=== PATIENT | male | born 1950 | race Caucasian/White ===

== ENCOUNTER 2018-06-29 04:19 | Emergency (ER) | payer OTHER ==
[2018-06-29] MEDS ORDERED: OXYMETAZOLINE 0.05% NASAL SOLUTION 15 ML BOTTLE NS ONE (04:34)
--- NOTE | 2018-06-29 04:35 | PDOC ---
History of Present Illness - General Stated Complaint: NOSEBLEED Time Seen by Provider: 06/29/18 04:22 - History of Present Illness Initial Comments: 06/29/18 04:29 67 yo M with h/o HTN, CHANEL, ventral hernia repair, A-fib ( on Xarelto) who p/w epistaxis. Patient reports acute onset of unprovoked right nare bleeding at 2: 30 AM, while sleeping with CPAP machine on. Also endorses blood down posterior throat. Denies h/o nose trauma, cocaine use, easy bruising, bleeding from orfices or gums. Bleeding unresolved with BL nasal bridge pressure. Reports multiple blood soaked "paper towels." Also reports similar presentation 2 weeks ago, with bleeding from R nare, resolved with nasal pressure after 2 hours. Patient denies JASON, vision change, hoarsness, N/V, F/C, CP, SOB, cough, palpitations, wheezing, urinary complaints, hematuria, abdominal pain, diarrhea , BPR, constipation, lightheadedness, weakness, sensory changes. PMHx: as noted above ROS: as noted SHx: Denies Allergies: NKDA Past History - Past Medical History Allergies/Adverse Reactions: Allergies Allergy/AdvReac Type Severity Reaction Status Date / Time No Known Drug Allergies Allergy Verified 06/29/18 04:40 Home Medications: Ambulatory Orders Acetaminophen/Caffeine/Butalb [Fioricet -] 1 tab PO Q4H PRN 04/13/15 Esomeprazole Mag Trihydrate [Nexium] 40 mg PO DAILY 04/13/15 Etodolac 500 mg PO DAILY 04/13/15 Fenofibrate Nanocrystallized [Tricor] 145 mg PO DAILY 04/13/15 Furosemide [Lasix -] 40 mg PO BID PRN 04/13/15 Metolazone [Zaroxolyn] 5 mg PO BID PRN 04/13/15 Metoprolol Succinate [Toprol Xl -] 50 mg PO HS 04/13/15 Metoprolol Succinate [Toprol Xl -] 100 mg PO DAILY 04/13/15 Warfarin Na [Coumadin] 5 mg PO DAILY@1800 04/13/15 Asthma: (SLEEP APNES C-PAP) HTN: Yes - Surgical History Orthopedic Surgery: Yes (FLACA KNEE TR RIGHT HIP REPLACEMENT) - Suicide/Smoking/Psychosocial Hx Smoking History: Never smoked Have you smoked in the past 12 months: No Hx Alcohol Use: No Drug/Substance Use Hx: No Substance Use Type: None Review of Systems - Review of Systems Comments:: 06/29/18 04:53 GENERAL/CONSTITUTIONAL: No fever or chills. No weakness. HEAD, EYES, EARS, NOSE AND THROAT: + Nose bleed. No change in vision. No ear pain or discharge. No sore throat. CARDIOVASCULAR: No chest pain or shortness of breath RESPIRATORY: No cough, wheezing, or hemoptysis. GASTROINTESTINAL: No nausea, vomiting, diarrhea or constipation. GENITOURINARY: No dysuria, frequency, or change in urination. MUSCULOSKELETAL: No joint or muscle swelling or pain. No neck or back pain. SKIN: No rash NEUROLOGIC: No headache, vertigo, loss of consciousness, or change in strength/ sensation. ENDOCRINE: No increased thirst. No abnormal weight change HEMATOLOGIC/LYMPHATIC: No anemia, easy bleeding, or history of blood clots. ALLERGIC/IMMUNOLOGIC: No hives or skin allergy. *Physical Exam - Physical Exam Comments: 06/29/18 04:52 GENERAL: Awake, alert, and fully oriented, in no acute distress HEAD: No signs of trauma, normocephalic, atraumatic EYES: PERRLA, EOMI, sclera anicteric, conjunctiva clear ENT: + Dried dark blood in R nare, with dried blood in posterior oropharynx. Auricles normal inspection, hearing grossly normal, nares patent with absent septal perforation.oropharynx clear without exudates. Moist mucosa NECK: Normal ROM, supple, no lymphadenopathy, JVD, or masses LUNGS: No distress, speaks full sentences, clear to auscultation bilaterally HEART: Regular rate and rhythm, normal S1 and S2, no murmurs, rubs or gallops, peripheral pulses normal and equal bilaterally. EXTREMITIES : Normal inspection, Normal range of motion, no edema. No clubbing or cyanosis. SKIN: Warm, Dry, normal turgor, no rashes or lesions noted Medical Decision Making - Medical Decision Making 06/29/18 04:49 67 yo M with h/o HTN, CHANEL, ventral hernia repair, A-fib ( on Xarelto) who p/w epistaxis from R nare beginning at 0230 AM (06/29/18). VSS, AF. Dried dark blood in R nare, with dried blood in posterior oropharynx. Bleeding resolved. Likely anterior vs. posterior epistaxis. Low suspicion hemophilia, coagulopathy , AVM, trauma, or neoplasia. Ed Course: Oxymetazoline 0.05% nasal spray Bleeding resolved 06/29/18 04:57 Patient stable for d/c with return precautions and advised to f/u with ENT. *DC/Admit/Observation/Transfer Diagnosis at time of Disposition: Epistaxis - Discharge Dispostion Condition at time of disposition: Stable Decision to Admit order: No - Referrals Referrals: Juancho Cheema MD [Staff Physician] - - Patient Instructions Printed Discharge Instructions: DI for Nosebleed Additional Instructions: Please return to the emergency department with any new or worsening symptoms or concerns. Please follow up with your primary care physician within 72 hours. Please follow up with ear,nose,throat doctor within one week. - Post Discharge Activity - Attestations Physician Attestion: 06/29/18 04:56 I attest to the information provided in this note.
[2018-06-29 04:40] VITALS: BP 143/80; PULSE 89; TEMP 98.4; BMI 44.9
--- NOTE | 2018-06-29 04:51 | PDOC ---
Attending Attestation - Resident Resident Name: Chirag White - ED Attending Attestation I have performed the following: I have examined & evaluated the patient, The case was reviewed & discussed with the resident, I agree w/resident's findings & plan - HPI HPI: 06/29/18 04:46 67y/o M HTN, afib on xarelto, CHANEL on nighttime cpap biba with nosebleed. awoke from sleep, upon standing to go to bathroom noted bleeding from R naris, applied pressure but continued bleeding intermittently for 2h so called EMS. bleeding stopped en route. no respiratory distress/light-headedness/cp. no recent congestion/URI. had similar bleed from R side about 1 month ago but self-resolved after 30 minutes. - Physicial Exam PE: 06/29/18 04:51 VSS no active bleeding b/l nares clean base, no clots or active bleeding, op clear lungs clear, airway patent - Medical Decision Making 06/29/18 04:52 67-year-old male on xarelto with epistaxis, resolved. hd stable, no airway/ respiratory issues. afrin spray observe and dispo with instructions and return precautions
== END 2018-06-29 05:50 | disposition home or self-care (01) ==
LOC: JER 04:19
PROC: 0W3Q7ZZ Control Bleeding in Respiratory Tract, Via Natural or Artificial Opening (ICD-10-PCS; principal; 2018-06-29)
DX: R04.0 Epistaxis (principal); I48.91 Unspecified atrial fibrillation; Z79.01 Long term (current) use of anticoagulants; I10 Essential (primary) hypertension; G47.33 Obstructive sleep apnea (adult) (pediatric)
CPT/HCPCS: 30901; 99282-25

== ENCOUNTER 2018-07-24 05:19 | Observation (INO) | payer OTHER ==
[2018-07-24] MEDS ORDERED: FUROSEMIDE 40 MG/4 ML INJECTABLE VIAL IVPUSH ONE (05:53)
--- NOTE | 2018-07-24 05:57 | PDOC ---
History of Present Illness - General Chief Complaint: Shortness of Breath Stated Complaint: SOB Time Seen by Provider: 07/24/18 05:47 History Source: Patient Exam Limitations: No Limitations - History of Present Illness Initial Comments: 67 yo M history CHF, CAD, HTN, afib, L foot drop presents with SOB. He states that he has felt like he has fluid in his lungs for the past 2 days. He has been taking medication at prescribed, has not missed anything. He states that he has not had fever, cough. +GONZÁLES, orthopnea. Past History - Past Medical History Allergies/Adverse Reactions: Allergies Allergy/AdvReac Type Severity Reaction Status Date / Time No Known Drug Allergies Allergy Verified 07/24/18 05:38 Home Medications: Ambulatory Orders Acetaminophen/Caffeine/Butalb [Fioricet -] 1 tab PO Q4H PRN 04/13/15 Esomeprazole Mag Trihydrate [Nexium] 40 mg PO DAILY 04/13/15 Furosemide [Lasix -] 40 mg PO BID PRN 04/13/15 Metolazone [Zaroxolyn] 5 mg PO BID PRN 04/13/15 Metoprolol Succinate [Toprol XL -] 50 mg PO HS 04/13/15 Metoprolol Succinate [Toprol XL -] 100 mg PO DAILY 04/13/15 Potassium Chloride [Klor-Con 8] 8 meq PO DAILY 06/29/18 Ergocalciferol (Vitamin D2) [Vitamin D2] 50,000 unit PO WEEKLY 07/24/18 Apixaban [Eliquis -] 5 mg PO BID tablet 07/26/18 Quinapril HCl [Accupril -] 20 mg PO DAILY #30 tablet 07/26/18 Cardiac Disorders: Yes (afib) COPD: No CHF: Yes HTN: Yes Other medical history: Uses CPAP at night - Surgical History Orthopedic Surgery: Yes (FLACA KNEE TR RIGHT HIP REPLACEMENT) - Suicide/Smoking/Psychosocial Hx Smoking History: Never smoked Have you smoked in the past 12 months: No Information on smoking cessation initiated: No Hx Alcohol Use: No Drug/Substance Use Hx: No Substance Use Type: None Review of Systems - Review of Systems Able to Perform ROS?: Yes Comments:: GENERAL/CONSTITUTIONAL: No fever or chills. No weakness. HEAD, EYES, EARS, NOSE AND THROAT: No change in vision. No ear pain or discharge. No sore throat. CARDIOVASCULAR: No chest pain. +Shortness of breath. RESPIRATORY: No cough, wheezing, or hemoptysis. GASTROINTESTINAL: No nausea, vomiting, diarrhea or constipation. GENITOURINARY: No dysuria, frequency, or change in urination. MUSCULOSKELETAL: No joint pain. No neck or back pain. +BLE swelling. SKIN: No rash NEUROLOGIC: No headache, vertigo, loss of consciousness, or change in strength/ sensation. ENDOCRINE: No increased thirst. No abnormal weight change. HEMATOLOGIC/LYMPHATIC: No anemia, easy bleeding, or history of blood clots. ALLERGIC/IMMUNOLOGIC: No hives or skin allergy. *Physical Exam - Vital Signs Last Vital Signs Temp Pulse Resp BP Pulse Ox 99.3 F 90 19 146/91 98 07/24/18 05:20 07/24/18 05:20 07/24/18 05:20 07/24/18 05:20 07/24/18 05:20 - Physical Exam Comments: GENERAL: Awake, alert, and fully oriented, in no acute distress. Morbidly obese. HEAD: No signs of trauma EYES: PERRLA, EOMI, sclera anicteric, conjunctiva clear ENT: Auricles normal inspection, hearing grossly normal, nares patent, oropharynx clear without exudates. Moist mucosa NECK: Normal ROM, supple, no lymphadenopathy, JVD, or masses LUNGS: Good air entry B/L, +crackles at bases B/L. HEART: Regular rate and rhythm, normal S1 and S2, no murmurs, rubs or gallops ABDOMEN: Soft, nontender, normoactive bowel sounds. No guarding, no rebound. No masses EXTREMITIES: Normal range of motion. 3+ pitting edema BLE (under compression stockings). No clubbing or cyanosis. No cords, erythema, or tenderness NEUROLOGICAL: Cranial nerves II through XII grossly intact. Normal speech. +L foot drop. Motor and sensation otherwise intact. SKIN: Warm, Dry, normal turgor, no rashes or lesions noted. ED Treatment Course - LABORATORY CBC & Chemistry Diagram: 07/25/18 06:25 07/26/18 06:24 - RADIOLOGY Radiology Studies Ordered: Category Date Time Status CHEST X-RAY PORTABLE* [RAD] Stat Radiology 07/24/18 05:53 Ordered Medical Decision Making - Medical Decision Making 07/24/18 06:13 Pt was not aware of history of afib on initial history, however, prior EKGs from 2015 show afib. He presents with worsening SOB, found to have crackles at bases B/L. Labs pending, CXR pending. Given lasix in ED, will plan for admission. 07/24/18 07:[address] Lei at shift change. Awaiting labs and CXR, likely admission. *DC/Admit/Observation/Transfer Diagnosis at time of Disposition: Acute on chronic diastolic (congestive) heart failure - Discharge Dispostion Disposition: HOME Condition at time of disposition: Fair - Prescriptions - Referrals - Patient Instructions - Post Discharge Activity
[2018-07-24 06:01] LABS: BASO % 0.7 % (0-2.0); EOS % 1.3 % (0-4.5); HEMATOCRIT 27.9 % (35.4-49); HEMOGLOBIN 8.7 GM/dL (11.7-16.9); LYMPH % 7.6 % (8-40); MCH 24.2 pg (25.7-33.7); MCHC 31.2 g/dl (32.0-35.9); MEAN CELL VOLUME 77.6 fl (80-96); MEAN PLT VOLUME 7.5 fl (7.5-11.1); MONO % 7.8 % (3.8-10.2); NEUT % 82.6 % (42.8-82.8); PLATELET COUNT 180 K/MM3 (134-434)
[2018-07-24] MEDS ORDERED: FUROSEMIDE 40 MG/4 ML INJECTABLE VIAL ONE (06:16)
[2018-07-24 06:17] LABS: INR 1.28 (0.83-1.09); PROTHROMBIN TIME (PATIENT) 15.1 SEC (9.7-13.0)
[2018-07-24 06:34] LABS: ALBUMIN 3.4 g/dl (3.4-5.0); ALK PHOS 92 U/L (45-117); ANION GAP 7 MMOL/L (8-16); BILIRUBIN,TOTAL 0.4 mg/dL (0.2-1); BLOOD UREA NITROGEN 30 mg/dL (7-18); CALCIUM 7.5 mg/dL (8.5-10.1); CHLORIDE 101 mmol/L (98-107); CO2 33 mmol/L (21-32); CREATININE 1.2 mg/dL (0.55-1.3); GLUCOSE,RANDOM 146 mg/dL (74-106); POTASSIUM 3.6 mmol/L (3.5-5.1); SGOT/AST 15 U/L (15-37); SGPT/ALT 15 U/L (13-61); SODIUM 141 mmol/L (136-145); TOT PROT 6.7 g/dl (6.4-8.2)
--- NOTE | 2018-07-24 10:42 | EKG ---
Test Reason : Blood Pressure : / mmHG Vent. Rate : 092 BPM Atrial Rate : 096 BPM P-R Int : 000 ms QRS Dur : 118 ms QT Int : 374 ms P-R-T Axes : 000 -18 044 degrees QTc Int : 462 ms POOR DATA QUALITY, INTERPRETATION MAY BE ADVERSELY AFFECTED ATRIAL FIBRILLATION CANNOT RULE OUT ANTERIOR INFARCT , AGE UNDETERMINED ABNORMAL ECG Confirmed by Kwame Oquendo MD ([id number]) on 07/24/2018 10:41:43 AM Referred By: Confirmed By:Kwame Oquendo MD
--- NOTE | 2018-07-24 11:12 | HP ---
Admitting History and Physical - Primary Care Physician PCP: Saw Hatch - Admission Chief Complaint: SOB History of Present Illness: 67 yo M history CHF, CAD, HTN, afib, L foot drop presents with SOB. He states that he has felt like he has fluid in his lungs for the past 2 days. He has been taking medication at prescribed, has not missed anything. He states that he has not had fever, cough. +GONZÁLES, orthopnea. Pt examined by me in ER He received Lasix 40mg IV x 1 -- diuresed - but still feels SOB on ambulation No chest pain , no palpitations History Source: Patient Limitations to Obtaining History: No Limitations - Past Medical History Cardiovascular: Yes: AFIB, CHF, HTN - Smoking History Smoking history: Never smoked Have you smoked in the past 12 months: No - Alcohol/Substance Use Hx Alcohol Use: No Home Medications - Allergies Allergies/Adverse Reactions: Allergies Allergy/AdvReac Type Severity Reaction Status Date / Time No Known Drug Allergies Allergy Verified 07/24/18 05:38 - Home Medications Home Medications: Ambulatory Orders Acetaminophen/Caffeine/Butalb [Fioricet -] 1 tab PO Q4H PRN 04/13/15 Esomeprazole Mag Trihydrate [Nexium] 40 mg PO DAILY 04/13/15 Etodolac 500 mg PO DAILY 04/13/15 Furosemide [Lasix -] 40 mg PO BID PRN 04/13/15 Metolazone [Zaroxolyn] 5 mg PO BID PRN 04/13/15 Metoprolol Succinate [Toprol Xl -] 50 mg PO HS 04/13/15 Metoprolol Succinate [Toprol Xl -] 100 mg PO DAILY 04/13/15 Potassium Chloride [Klor-Con 8] 8 meq PO DAILY 06/29/18 Ergocalciferol (Vitamin D2) [Vitamin D2] 50,000 unit PO WEEKLY 07/24/18 Review of Systems - Review of Systems Constitutional: denies: Chills, Fever, Weakness Cardiovascular: reports: Edema, Shortness of Breath. denies: Chest Pain, Palpitations Physical Examination Vital Signs: Vital Signs Temperature 99.3 F 07/24/18 05:20 Pulse Rate 90 07/24/18 05:20 Respiratory Rate 19 07/24/18 05:20 Blood Pressure 146/91 07/24/18 05:20 O2 Sat by Pulse Oximetry (%) 99 07/24/18 06:25 Constitutional: Yes: No Distress, Calm Cardiovascular: Yes: Pulse Irregular, Murmur Respiratory: Yes: Diminished Gastrointestinal: Yes: Normal Bowel Sounds, Soft, Abdomen, Obese. No: Tenderness Edema: Yes Edema: LLE: 2+, RLE: 2+ Labs: CBC, BMP 07/24/18 05:46 07/24/18 05:46 Imaging - Results Chest X-ray: Image Reviewed (congestion) EKG: Image Reviewed Problem List - Problems (1) Acute on chronic diastolic (congestive) heart failure Code(s): I50.33 - ACUTE ON CHRONIC DIASTOLIC (CONGESTIVE) HEART FAILURE (2) Atrial fibrillation Code(s): I48.91 - UNSPECIFIED ATRIAL FIBRILLATION (3) Diastolic CHF Code(s): I50.30 - UNSPECIFIED DIASTOLIC (CONGESTIVE) HEART FAILURE (4) HTN (hypertension) Code(s): I10 - ESSENTIAL (PRIMARY) HYPERTENSION (5) Hyperlipidemia Code(s): E78.5 - HYPERLIPIDEMIA, UNSPECIFIED (6) Morbid obesity Code(s): E66.01 - MORBID (SEVERE) OBESITY DUE TO EXCESS CALORIES Assessment/Plan PLAN IV Lasix BID check renal function monitor weights Cardiology eval Check cardiac enzymes noted pt to be anemic-- he has GI work up scheduled next week
--- NOTE | 2018-07-24 11:16 | CON.CARD ---
Consult Consult Specialty:: cardiology Reason for Consultation:: SOB; hx AF - History of Present Illness Chief Complaint: SOB; bilateral leg swelling History of Present Illness: 67 yo white man with PM history diastolic CHF, CAD, HTN, afib, s/p bilateral TKR , right hip replacement, "natural" lumbar spinal compression,L foot drop, morbid obesity, ? sleep apnea, now presents with SOB and increasing bilateral LE swelling. He states that he has felt like he has fluid in his lungs for the past 2 days. He has been taking medication at prescribed, has not missed anything (but was on lisinopril 20 mg daily listed in cardiac office; he says he has not been taking this; also has furosemide and metolazone prn, and has not been taking them for the past several days, either). He states that he has not had fever, cough. He does have +GONZÁLES, orthopnea. PMD: Dr. Melisa Montgomery Cariologist: Dr. Tran - History Source History Provided By: Patient, Medical Record Limitations to Obtaining History: No Limitations - Past Medical History Cardio/Vascular: Yes: AFIB, CHF (diastolic), HTN, Hyperlipdemia, Other (morbid obesity) Pulmonary: Yes: Sleep Apnea. No: Asthma - Past Surgical History Past Surgical History: Yes: Joint Replacement (knees; R hip) - Alcohol/Substance Use Hx Alcohol Use: No - Smoking History Smoking history: Never smoked Have you smoked in the past 12 months: No Home Medications - Allergies Allergies/Adverse Reactions: Allergies Allergy/AdvReac Type Severity Reaction Status Date / Time No Known Drug Allergies Allergy Verified 07/24/18 05:38 - Home Medications Home Medications: Ambulatory Orders Acetaminophen/Caffeine/Butalb [Fioricet -] 1 tab PO Q4H PRN 04/13/15 Esomeprazole Mag Trihydrate [Nexium] 40 mg PO DAILY 04/13/15 Etodolac 500 mg PO DAILY 04/13/15 Furosemide [Lasix -] 40 mg PO BID PRN 04/13/15 Metolazone [Zaroxolyn] 5 mg PO BID PRN 04/13/15 Metoprolol Succinate [Toprol Xl -] 50 mg PO HS 04/13/15 Metoprolol Succinate [Toprol Xl -] 100 mg PO DAILY 04/13/15 Potassium Chloride [Klor-Con 8] 8 meq PO DAILY 06/29/18 Ergocalciferol (Vitamin D2) [Vitamin D2] 50,000 unit PO WEEKLY 07/24/18 Family Disease History - Family Disease History Family History: Denies Review of Systems - Review of Systems Constitutional: reports: No Symptoms Eyes: reports: No Symptoms HENT: reports: No Symptoms Neck: reports: No Symptoms Cardiovascular: reports: Shortness of Breath Respiratory: reports: SOB Gastrointestinal: reports: No Symptoms Genitourinary: reports: No Symptoms Breasts: reports: No Symptoms Reported Musculoskeletal: reports: Extremity Pain, Muscle Weakness Integumentary: reports: Other Neurological: reports: No Symptoms Endocrine: reports: No Symptoms Hematology/Lymphatic: reports: No Symptoms Psychiatric: reports: Anxiety - Risk Factors Known Risk Factors: Yes: Age, Gender, Hypercholesterolemia, Hypertension, Physical Inactivity, Other (morbid obesity) Vital Signs: Vital Signs Temperature 99.3 F 07/24/18 05:20 Pulse Rate 90 07/24/18 05:20 Respiratory Rate 19 07/24/18 05:20 Blood Pressure 146/91 07/24/18 05:20 O2 Sat by Pulse Oximetry (%) 99 07/24/18 06:25 Constitutional: Yes: Anxious Eyes: Yes: WNL - Other Data Labs, Other Data: CBC, BMP 07/24/18 05:46 07/24/18 05:46 INR, PTT INR 1.28 (0.83-1.09) H 07/24/18 05:46 Troponin, BNP 07/24/18 07/24/18 05:46 05:46 Troponin I < 0.02 B-Natriuretic Peptide 1132.2 H Troponin, BNP 07/24/18 07/24/18 05:46 05:46 Troponin I < 0.02 B-Natriuretic Peptide 1132.2 H Imaging - Results Chest X-ray: Image Reviewed (bilateral marked vascular congestion) EKG: Image Reviewed (AF; ? old anterior infarct) Problem List - Problems (1) Atrial fibrillation Assessment/Plan: on metoprolol 100 mg qam, 50 mg q pm for HR and BP. On apixaban, but only once daily; need to check on proper dosing. Code(s): I48.91 - UNSPECIFIED ATRIAL FIBRILLATION (2) Diastolic CHF Code(s): I50.30 - UNSPECIFIED DIASTOLIC (CONGESTIVE) HEART FAILURE (3) Morbid obesity Code(s): E66.01 - MORBID (SEVERE) OBESITY DUE TO EXCESS CALORIES (4) Acute on chronic diastolic (congestive) heart failure Code(s): I50.33 - ACUTE ON CHRONIC DIASTOLIC (CONGESTIVE) HEART FAILURE (5) Hyperlipidemia Assessment/Plan: on statin; f/u liipid panel. Code(s): E78.5 - HYPERLIPIDEMIA, UNSPECIFIED (6) HTN (hypertension) Assessment/Plan: On metoprolol. REstart lisinopril 20 mg daily. IV furosemide (and pt has been on metalazone prn). F/u BUN/Cr, electrolytes, daily weight, Is and Os. Code(s): I10 - ESSENTIAL (PRIMARY) HYPERTENSION (7) Sleep apnea Code(s): G47.30 - SLEEP APNEA, UNSPECIFIED
[2018-07-24 12:53] LABS: CHOLESTEROL 135 mg/dL (50-200); HDL CHOLESTEROL 51 mg/dL (40-60); TRIGLYCERIDES 112 mg/dL (0-150)
[2018-07-24] MEDS ORDERED: PANTOPRAZOLE 40 MG TABLET (FP) ONE (13:52)
[2018-07-24] MEDS ORDERED: QUINAPRIL HCL 10 MG TABLET (FP) ONE (13:52)
[2018-07-24] MEDS: QUINAPRIL HCL 20 MG TABLET (FP) PO SCH (13:59)
[2018-07-24] MEDS: PANTOPRAZOLE 40 MG TABLET (FP) PO SCH (13:59)
[2018-07-24 15:41] VITALS: BMI 44.3
[2018-07-24] MEDS: FUROSEMIDE 40 MG/4 ML INJECTABLE VIAL IVPUSH SCH (16:50)
[2018-07-24] MEDS: ACETAMINOPHEN/CAFFEINE/BUTALBITAL 1 TAB PO PRN (17:49)
[2018-07-24] MEDS ORDERED: PT OWN MED DRAWER 7, Y5N ONE ×2 (20:49→23:18)
[2018-07-24] MEDS: APIXABAN 5 MG TABLET PO SCH (22:19)
[2018-07-25] MEDS: FUROSEMIDE 40 MG/4 ML INJECTABLE VIAL IVPUSH SCH ×2 (05:01→13:22)
[2018-07-25 08:10] LABS: HEMOGLOBIN 8.8 GM/dL (11.7-16.9); MCH 24.1 pg (25.7-33.7); MCHC 31.3 g/dl (32.0-35.9); MEAN CELL VOLUME 76.9 fl (80-96); MEAN PLT VOLUME 8.1 fl (7.5-11.1); PLATELET COUNT 198 K/MM3 (134-434); RBC 3.64 M/mm3 (4.00-5.60); WHITE BLOOD COUNT 4.1 K/mm3 (4.0-10.0)
[2018-07-25 08:15] LABS: ALBUMIN 3.6 g/dl (3.4-5.0); ALK PHOS 95 U/L (45-117); ANION GAP 8 MMOL/L (8-16); BILIRUBIN,TOTAL 0.6 mg/dL (0.2-1); BLOOD UREA NITROGEN 26 mg/dL (7-18); CALCIUM 7.8 mg/dL (8.5-10.1); CHLORIDE 99 mmol/L (98-107); CO2 33 mmol/L (21-32); GLUCOSE,RANDOM 102 mg/dL (74-106); POTASSIUM 3.2 mmol/L (3.5-5.1); SGOT/AST 12 U/L (15-37); SGPT/ALT 14 U/L (13-61); SODIUM 140 mmol/L (136-145); TOT PROT 6.9 g/dl (6.4-8.2)
[2018-07-25] MEDS ORDERED: PT OWN MED DRAWER 7, Y5N ONE ×3 (08:56→20:56)
[2018-07-25] MEDS: QUINAPRIL HCL 20 MG TABLET (FP) PO SCH (09:10)
[2018-07-25] MEDS: APIXABAN 5 MG TABLET PO SCH ×2 (09:10→21:15)
[2018-07-25] MEDS: PANTOPRAZOLE 40 MG TABLET (FP) PO SCH (09:10)
[2018-07-25] MEDS: POTASSIUM CHLORIDE TABS 20 MEQ TABLET.ER (FP) PO SCH ×2 (10:15→21:15)
--- NOTE | 2018-07-25 10:54 | PN ---
Progress Note (short form) - Note Progress Note: feeling better not at baseline though Vital Signs - 24 hr 07/24/18 07/24/18 07/24/18 13:57 15:23 15:41 Temperature 98.8 F 98.2 F Pulse Rate 94 H 99 H Respiratory 19 20 Rate Blood Pressure 141/94 137/82 O2 Sat by Pulse 98 Oximetry (%) 07/24/18 07/24/18 07/24/18 21:00 22:16 23:53 Temperature 98.4 F Pulse Rate 99 H Respiratory 20 20 20 Rate Blood Pressure 138/92 O2 Sat by Pulse 99 99 Oximetry (%) 07/25/18 07/25/18 09:01 10:00 Temperature 98.5 F Pulse Rate 96 H Respiratory 20 20 Rate Blood Pressure 120/81 O2 Sat by Pulse 96 Oximetry (%) Current Medications Generic Name Dose Route Start Last Admin Trade Name Freq PRN Reason Stop Dose Admin Acetaminophen/Butalbital/Caffeine 1 tablet 07/24/18 10:10 07/24/18 17:49 Fioricet - PO 1 tablet Q4H PRN Administration HEADACHE Apixaban 5 mg 07/24/18 22:00 07/25/18 09:10 Eliquis - PO 5 mg BID CARLOS Administration Furosemide 40 mg 07/24/18 14:00 07/25/18 05:01 Lasix Injection - IVPUSH 40 mg BID@0600,1400 CARLOS Administration Metoprolol Succinate 50 mg 07/24/18 22:00 07/24/18 22:19 Toprol Xl - PO 50 mg HS CARLOS Administration Metoprolol Succinate 100 mg 07/25/18 10:00 07/25/18 09:10 Toprol Xl - PO 100 mg DAILY CARLOS Administration Pantoprazole Sodium 40 mg 07/24/18 10:15 07/25/18 09:10 Protonix - PO 40 mg DAILY CARLOS Administration Potassium Chloride 20 meq 07/25/18 10:00 07/25/18 10:15 K-Dur - PO 20 meq BID CARLOS Administration Quinapril HCl 20 mg 07/24/18 11:15 07/25/18 09:10 Accupril - PO 20 mg DAILY CARLSO Administration Laboratory Results - last 24 hr 07/24/18 07/25/18 07/25/18 12:00 06:25 06:25 WBC 4.1 RBC 3.64 L Hgb 8.8 L Hct 28.0 L MCV 76.9 L MCH 24.1 L MCHC 31.3 L RDW 18.0 H Plt Count 198 MPV 8.1 Sodium 140 Potassium 3.2 L Chloride 99 Carbon Dioxide 33 H Anion Gap 8 BUN 26 H Creatinine 1.0 Creat Clearance w eGFR > 60 Random Glucose 102 Calcium 7.8 L Total Bilirubin 0.6 AST 12 L ALT 14 Alkaline Phosphatase 95 Creatine Kinase 178 Creatine Kinase Index 2.3 CK-MB (CK-2) 4.2 H Troponin I < 0.02 Total Protein 6.9 Albumin 3.6 Triglycerides 112 Cholesterol 135 Total LDL Cholesterol 71 HDL Cholesterol 51 S1 S2 Irregular Lungs decreased Abd- sotf, obese, NT Edema decreased PLAN replace potassium continue IV lasix BID Echo ordered possible dc in AM diuresing well
--- NOTE | 2018-07-25 11:42 | PN ---
Progress Note, Physician History of Present Illness: 67 yo white man with PM history diastolic CHF, CAD, HTN, afib, s/p bilateral TKR , right hip replacement, "natural" lumbar spinal compression,L foot drop, morbid obesity, ? sleep apnea, now presents with SOB and increasing bilateral LE swelling. He states that he has felt like he has fluid in his lungs for the past 2 days. He has been taking medication at prescribed, has not missed anything (but was on lisinopril 20 mg daily listed in cardiac office; he says he has not been taking this; also has furosemide and metolazone prn, and has not been taking them for the past several days, either). He states that he has not had fever, cough. He does have +GONZÁLES, orthopnea. PMD: Dr. Melisa Montgomery Cariologist: Dr. Tran - Current Medication List Current Medications: Active Medications Acetaminophen/Butalbital/Caffeine (Fioricet -) 1 tablet PO Q4H PRN PRN Reason: HEADACHE Last Admin: 07/24/18 17:49 Dose: 1 tablet Apixaban (Eliquis -) 5 mg PO BID [facility] Last Admin: 07/25/18 09:10 Dose: 5 mg Furosemide (Lasix Injection -) 40 mg IVPUSH BID@0600,1400 [facility] Last Admin: 07/25/18 05:01 Dose: 40 mg Metoprolol Succinate (Toprol Xl -) 50 mg PO HS [facility] Last Admin: 07/24/18 22:19 Dose: 50 mg Metoprolol Succinate (Toprol Xl -) 100 mg PO DAILY [facility] Last Admin: 07/25/18 09:10 Dose: 100 mg Pantoprazole Sodium (Protonix -) 40 mg PO DAILY [facility] Last Admin: 07/25/18 09:10 Dose: 40 mg Potassium Chloride (K-Dur -) 20 meq PO BID [facility] Last Admin: 07/25/18 10:15 Dose: 20 meq Quinapril HCl (Accupril -) 20 mg PO DAILY [facility] Last Admin: 07/25/18 09:10 Dose: 20 mg - Objective Vital Signs: Vital Signs Temperature 98.5 F 07/25/18 09:01 Pulse Rate 96 H 07/25/18 09:01 Respiratory Rate 20 07/25/18 10:00 Blood Pressure 120/81 07/25/18 09:01 O2 Sat by Pulse Oximetry (%) 96 07/25/18 10:00 Eyes: Yes: WNL, Conjunctiva Clear, EOM Intact HENT: Yes: WNL, Atraumatic, Normocephalic Neck: Yes: WNL, Supple, Trachea Midline Cardiovascular: Yes: WNL, Pulse Irregular, S1, S2 Respiratory: Yes: WNL, Regular, CTA Bilaterally Gastrointestinal: Yes: WNL, Normal Bowel Sounds Genitourinary: Yes: WNL Musculoskeletal: Yes: WNL Extremities: Yes: WNL Edema: Yes Integumentary: Yes: WNL Neurological: Yes: WNL, Alert, Oriented ...Motor Strength: WNL Psychiatric: Yes: WNL Labs: CBC, BMP 07/25/18 06:25 07/25/18 06:25 INR, PTT INR 1.28 (0.83-1.09) H 07/24/18 05:46 Assessment/Plan - Problems (1) Atrial fibrillation Assessment/Plan: on metoprolol 100 mg qam, 50 mg q pm for HR and BP. On apixaban, but only once daily; need to check on proper dosing. Code(s): I48.91 - UNSPECIFIED ATRIAL FIBRILLATION (2) Diastolic CHF Code(s): I50.30 - UNSPECIFIED DIASTOLIC (CONGESTIVE) HEART FAILURE (3) Morbid obesity Code(s): E66.01 - MORBID (SEVERE) OBESITY DUE TO EXCESS CALORIES (4) Acute on chronic diastolic (congestive) heart failure Code(s): I50.33 - ACUTE ON CHRONIC DIASTOLIC (CONGESTIVE) HEART FAILURE (5) Hyperlipidemia Assessment/Plan: on statin; f/u liipid panel. Code(s): E78.5 - HYPERLIPIDEMIA, UNSPECIFIED (6) HTN (hypertension) Assessment/Plan: On metoprolol. REstart lisinopril 20 mg daily. IV furosemide (and pt has been on metalazone prn). F/u BUN/Cr, electrolytes, daily weight, Is and Os. Code(s): I10 - ESSENTIAL (PRIMARY) HYPERTENSION (7) Sleep apnea Code(s): G47.30 - SLEEP APNEA, UNSPECIFIED
[2018-07-25] MEDS: ACETAMINOPHEN/CAFFEINE/BUTALBITAL 1 TAB PO PRN (13:22)
[2018-07-26] MEDS: FUROSEMIDE 40 MG/4 ML INJECTABLE VIAL IVPUSH SCH (06:05)
[2018-07-26 07:58] LABS: ANION GAP 8 MMOL/L (8-16); BLOOD UREA NITROGEN 30 mg/dL (7-18); CALCIUM 7.8 mg/dL (8.5-10.1); CHLORIDE 99 mmol/L (98-107); CO2 34 mmol/L (21-32); GLUCOSE,RANDOM 105 mg/dL (74-106); POTASSIUM 3.2 mmol/L (3.5-5.1); SODIUM 141 mmol/L (136-145)
[2018-07-26] MEDS: ACETAMINOPHEN/CAFFEINE/BUTALBITAL 1 TAB PO PRN (08:12)
[2018-07-26] MEDS: POTASSIUM CHLORIDE TABS 20 MEQ TABLET.ER (FP) PO SCH (09:18)
[2018-07-26] MEDS: APIXABAN 5 MG TABLET PO SCH (09:18)
[2018-07-26] MEDS: QUINAPRIL HCL 20 MG TABLET (FP) PO SCH (09:18)
[2018-07-26] MEDS: PANTOPRAZOLE 40 MG TABLET (FP) PO SCH (09:18)
[2018-07-26 09:52] VITALS: BP 157/87; PULSE 90; TEMP 98.2
--- NOTE | 2018-07-26 10:22 | DS ---
Physical Examination Vital Signs: Vital Signs Temperature 98.2 F 07/26/18 09:00 Pulse Rate 90 07/26/18 09:00 Respiratory Rate 20 07/26/18 09:00 Blood Pressure 157/87 07/26/18 09:00 O2 Sat by Pulse Oximetry (%) 98 07/26/18 09:00 Constitutional: Yes: No Distress, Calm Cardiovascular: Yes: Pulse Irregular Respiratory: Yes: CTA Bilaterally Gastrointestinal: Yes: Normal Bowel Sounds, Soft, Abdomen, Obese. 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 Afib is rate controlled was diuresed wth IV lasix Pt responded well He is stable for dc home on PO Lasix Potassium replaced today Condition: Fair - Instructions Disposition: HOME - Home Medications Comprehensive Discharge Medication List: Ambulatory Orders Acetaminophen/Caffeine/Butalb [Fioricet -] 1 tab PO Q4H PRN 04/13/15 Esomeprazole Mag Trihydrate [Nexium] 40 mg PO DAILY 04/13/15 Etodolac 500 mg PO DAILY 04/13/15 Furosemide [Lasix -] 40 mg PO BID PRN 04/13/15 Metolazone [Zaroxolyn] 5 mg PO BID PRN 04/13/15 Metoprolol Succinate [Toprol Xl -] 50 mg PO HS 04/13/15 Metoprolol Succinate [Toprol Xl -] 100 mg PO DAILY 04/13/15 Potassium Chloride [Klor-Con 8] 8 meq PO DAILY 06/29/18 Ergocalciferol (Vitamin D2) [Vitamin D2] 50,000 unit PO WEEKLY 07/24/18
== END 2018-07-26 10:39 | disposition home or self-care (01) ==
LOC: JER 05:19 → JERBED 07:53 → J7W 14:57
PROVIDERS: ADMIT Internal Medicine; ATTEND Internal Medicine
PROC: 3E033GC Introduction of Other Therapeutic Substance into Peripheral Vein, Percutaneous Approach (ICD-10-PCS; principal; 2018-07-24)
DX: I11.0 Hypertensive heart disease with heart failure (principal); I50.33 Acute on chronic diastolic (congestive) heart failure; I48.91 Unspecified atrial fibrillation; E78.5 Hyperlipidemia, unspecified; I25.10 Atherosclerotic heart disease of native coronary artery without angina pectoris; M21.372 Foot drop, left foot; E66.01 Morbid (severe) obesity due to excess calories; Z68.41 Body mass index [BMI] 40.0-44.9, adult; Z99.89 Dependence on other enabling machines and devices; Z96.641 Presence of right artificial hip joint; Z96.653 Presence of artificial knee joint, bilateral
CPT/HCPCS: 36415; 71045-TC-FY; 80048; 80053; 80061; 82550; 82553; 83721; 83880; 84443; 84484; 85025; 85027; 85610; 93005; 93010; 93306-TC; 96374; 96376; 99285-25; G0378

== ENCOUNTER 2022-01-27 10:03 | Observation (INO) | payer OTHER ==
[2022-01-27] MEDS ORDERED: ONDANSETRON 4 MG/2 ML VIAL IVPUSH ONE (10:57)
[2022-01-27] MEDS ORDERED: ONDANSETRON 4 MG/2 ML VIAL ONE (11:00)
[2022-01-27 11:52] LABS: INR 1.41 (0.83-1.09); PROTHROMBIN TIME (PATIENT) 16.3 SEC (9.7-13.0)
[2022-01-27 11:55] LABS: ACTIVATED PTT 32.8 SECONDS (25.2-36.5)
[2022-01-27 11:59] LABS: BLOOD UREA NITROGEN 57.1 mg/dL (7-18); CALCIUM 8.4 mg/dL (8.5-10.1)
[2022-01-27 12:01] LABS: ALBUMIN 3.7 g/dl (3.4-5.0)
[2022-01-27 12:03] LABS: CREATININE 1.8 mg/dL (0.55-1.3)
[2022-01-27 12:05] LABS: BILIRUBIN,TOTAL 0.8 mg/dL (0.2-1)
[2022-01-27 12:07] LABS: TOT PROT 6.9 g/dl (6.4-8.2)
[2022-01-27 12:09] LABS: N-TERMINAL BNP 920.3 pg/ml (5-125)
[2022-01-27 13:09] LABS: BASO % 1.2 % (0-2.0); EOS % 0.4 % (0-4.5); HEMATOCRIT 28.1 % (35.4-49); HEMOGLOBIN 8.6 GM/dL (11.7-16.9); LYMPH % 6.3 % (8-40); MCH 22.5 pg (25.7-33.7); MCHC 30.6 g/dl (32.0-35.9); MEAN CELL VOLUME 73.8 fl (80-96); MONO % 7.2 % (3.8-10.2); NEUT % 84.9 % (42.8-82.8); PLATELET COUNT 197 10^3/uL (134-434); RBC 3.81 M/mm3 (4.00-5.60); RDW 19.4 % (11.9-15.9); WHITE BLOOD COUNT 3.6 K/mm3 (4.0-10.0)
[2022-01-27] MEDS ORDERED: SODIUM CHLORIDE 0.9% 500 ML INFUS.BAG IV ONE (13:16)
[2022-01-27] MEDS: SODIUM CHLORIDE 1,000 ML IV SCH (16:25)
[2022-01-27] MEDS: APIXABAN 5 MG TABLET PO SCH (22:03)
[2022-01-27] MEDS: ATORVASTATIN CA 40 MG TABLET (FP) PO SCH (22:06)
[2022-01-28 07:59] LABS: BASO % 0.9 % (0-2.0); EOS % 0.7 % (0-4.5); HEMATOCRIT 28.4 % (35.4-49); HEMOGLOBIN 8.6 GM/dL (11.7-16.9); LYMPH % 13.5 % (8-40); MCH 22.4 pg (25.7-33.7); MCHC 30.4 g/dl (32.0-35.9); MEAN CELL VOLUME 73.9 fl (80-96); MONO % 9.8 % (3.8-10.2); NEUT % 75.1 % (42.8-82.8); PLATELET COUNT 202 10^3/uL (134-434); RBC 3.84 M/mm3 (4.00-5.60); RDW 19.6 % (11.9-15.9); WHITE BLOOD COUNT 4.5 K/mm3 (4.0-10.0)
[2022-01-28 08:47] LABS: BLOOD UREA NITROGEN 49.7 mg/dL (7-18); CALCIUM 8.3 mg/dL (8.5-10.1)
[2022-01-28 08:51] LABS: CREATININE 1.5 mg/dL (0.55-1.3)
[2022-01-28] MEDS: APIXABAN 5 MG TABLET PO SCH ×2 (09:24→22:22)
[2022-01-28] MEDS: PANTOPRAZOLE 40 MG TABLET PO SCH (09:24)
[2022-01-28] MEDS: SODIUM CHLORIDE 1,000 ML IV SCH (09:25)
[2022-01-28] MEDS ORDERED: POTASSIUM CHLORIDE ORAL LIQUID 20 MEQ/15 ML PO ONE (11:59)
[2022-01-28] MEDS: metoPROLOL SUCCINATE 25 MG TAB.SR.24H (FP) PO SCH (12:40)
[2022-01-28] MEDS ORDERED: POTASSIUM CHLORIDE TABS 10 MEQ TABLET.ER (FP) PO ONE ×2 (14:00→18:15)
[2022-01-28] MEDS ORDERED: ACETAMINOPHEN 325 MG TABLET (FP) PO ONE (20:58)
[2022-01-28] MEDS: ATORVASTATIN CA 40 MG TABLET (FP) PO SCH (22:22)
[2022-01-29 07:14] LABS: BLOOD UREA NITROGEN 46.6 mg/dL (7-18); CALCIUM 8.1 mg/dL (8.5-10.1)
[2022-01-29 07:18] LABS: CREATININE 1.5 mg/dL (0.55-1.3)
[2022-01-29] MEDS ORDERED: cefTRIAXone SODIUM 1 GM VIAL ONE (09:44)
[2022-01-29] MEDS ORDERED: DEXTROSE 5%-WATER - 50 ML IVPB ONE (09:45)
[2022-01-29] MEDS: CEFTRIAXONE 1 GM in DEXTROSE 5%-WATER - 50 ML IVPB SCH (09:59)
[2022-01-29] MEDS: PANTOPRAZOLE 40 MG TABLET PO SCH (09:59)
[2022-01-29] MEDS: metoPROLOL SUCCINATE 25 MG TAB.SR.24H (FP) PO SCH (09:59)
[2022-01-29] MEDS: APIXABAN 5 MG TABLET PO SCH ×2 (09:59→21:32)
[2022-01-29 10:34] LABS: BASO % 1.1 % (0-2.0); EOS % 0.6 % (0-4.5); HEMATOCRIT 28.3 % (35.4-49); HEMOGLOBIN 8.5 GM/dL (11.7-16.9); MCH 22.3 pg (25.7-33.7); MCHC 30.2 g/dl (32.0-35.9); MEAN PLT VOLUME 7.8 fl (7.5-11.1); MONO % 12.4 % (3.8-10.2); NEUT % 70.9 % (42.8-82.8); PLATELET COUNT 199 10^3/uL (134-434); RBC 3.83 M/mm3 (4.00-5.60); RDW 19.2 % (11.9-15.9); WHITE BLOOD COUNT 4.6 K/mm3 (4.0-10.0)
[2022-01-29 11:01] LABS: ALBUMIN 3.6 g/dl (3.4-5.0); BLOOD UREA NITROGEN 42.4 mg/dL (7-18); CALCIUM 8.7 mg/dL (8.5-10.1)
[2022-01-29 11:04] LABS: CREATININE 1.5 mg/dL (0.55-1.3)
[2022-01-29 11:07] LABS: BILIRUBIN,TOTAL 0.5 mg/dL (0.2-1); TOT PROT 7.1 g/dl (6.4-8.2)
[2022-01-29 13:31] LABS: EPI CELLS 1 /uL (0-25.1); HYALINE CASTS 1 /uL (0-3.1); PH,URINE 5.5 (5.0-8.0); URINE APPEARANCE CLEAR; URINE BACTERIA 6 /uL (0-1359); URINE BILIRUBIN NEGATIVE (NEGATIVE); URINE COLOR YELLOW; URINE GLUCOSE (UA) NEGATIVE (NEGATIVE); URINE KETONE NEGATIVE (NEGATIVE); URINE LEUK ESTERASE NEGATIVE (NEGATIVE); URINE NITRITE NEGATIVE (NEGATIVE); URINE PROTEIN 1+ (NEGATIVE); URINE RBC 4 /uL (0-23.9); URINE UROBILINOGEN 0.2 mg/dL (0.2-1.0); URINE WBC 2 /uL (0-25.8)
[2022-01-29] MEDS: ATORVASTATIN CA 40 MG TABLET (FP) PO SCH (21:32)
[2022-01-29] MEDS: ACETAMINOPHEN 325 MG TABLET (FP) PO PRN (21:32)
[2022-01-30] MEDS ORDERED: DEXTROSE 5%-WATER - 50 ML IVPB ONE (05:28)
[2022-01-30] MEDS ORDERED: cefTRIAXone SODIUM 1 GM VIAL ONE (05:28)
[2022-01-30] MEDS: CEFTRIAXONE 1 GM in DEXTROSE 5%-WATER - 50 ML IVPB SCH (05:38)
[2022-01-30] MEDS: metoPROLOL SUCCINATE 25 MG TAB.SR.24H (FP) PO SCH (10:16)
[2022-01-30] MEDS: ACETAMINOPHEN 325 MG TABLET (FP) PO PRN (10:16)
[2022-01-30] MEDS: PANTOPRAZOLE 40 MG TABLET PO SCH (10:16)
[2022-01-30] MEDS: APIXABAN 5 MG TABLET PO SCH (10:21)
[2022-01-30 10:51] VITALS: BMI 39.6
[2022-01-30 11:40] VITALS: BP 128/83; PULSE 115; TEMP 97.9
== END 2022-01-30 12:54 | disposition home or self-care (01) ==
LOC: JER 10:03 → JERBED 13:17 → J4W 17:59
PROVIDERS: ADMIT Internal Medicine; ATTEND Internal Medicine
PROC: 3E03329 Introduction of Other Anti-infective into Peripheral Vein, Percutaneous Approach (ICD-10-PCS; principal; 2022-01-27)
PROC: 3E033GC Introduction of Other Therapeutic Substance into Peripheral Vein, Percutaneous Approach (ICD-10-PCS; 2022-01-27)
PROC: 3E0337Z Introduction of Electrolytic and Water Balance Substance into Peripheral Vein, Percutaneous Approach (ICD-10-PCS; 2022-01-27)
DX: I25.10 Atherosclerotic heart disease of native coronary artery without angina pectoris (principal); I11.9 Hypertensive heart disease without heart failure; I48.91 Unspecified atrial fibrillation; I50.30 Unspecified diastolic (congestive) heart failure; E66.9 Obesity, unspecified; Z68.39 Body mass index [BMI] 39.0-39.9, adult; R55 Syncope and collapse; I11.0 Hypertensive heart disease with heart failure; Z79.01 Long term (current) use of anticoagulants; D64.9 Anemia, unspecified; Z96.653 Presence of artificial knee joint, bilateral; Z96.641 Presence of right artificial hip joint; G95.20 Unspecified cord compression; G47.30 Sleep apnea, unspecified
CPT/HCPCS: 36415; 71045-TC-FY; 80048; 80053; 80061; 81003; 82962; 83036; 83880; 84443; 84484; 85025; 85610; 85730; 87040; 87086; 93005; 93010; 93306-TC; 93880-TC; 96361; 96365; 96375; 97116-GP; 97161-GP; 99285-25; C9803-CS; G0378; U0003; U0005

== ENCOUNTER 2022-11-27 11:39 | Inpatient (IN) | payer OTHER ==
[2022-11-27 13:19] LABS: INR 1.62 (0.83-1.09); PROTHROMBIN TIME (PATIENT) 18.7 SEC (9.7-13.0)
[2022-11-27 13:23] LABS: BASO % 2.4 % (0-2.0); EOS % 1.9 % (0-4.5); LYMPH % 14.7 % (8-40); MCHC 27.7 g/dl (32.0-35.9); MEAN CELL VOLUME 70.4 fl (80-96); MEAN PLT VOLUME 8.1 fl (7.5-11.1); MONO % 12.7 % (3.8-10.2); NEUT % 68.3 % (42.8-82.8); PLATELET COUNT 199 10^3/uL (134-434); RBC 2.84 M/mm3 (4.00-5.60); RDW 20.2 % (11.9-15.9); WHITE BLOOD COUNT 4.1 K/mm3 (4.0-10.0)
[2022-11-27 13:26] LABS: MCH 19.5 pg (25.7-33.7)
[2022-11-27 13:27] LABS: HEMOGLOBIN 5.5 GM/dL (11.7-16.9)
[2022-11-27 13:32] LABS: ALBUMIN 3.3 g/dl (3.4-5.0); CALCIUM 8.1 mg/dL (8.5-10.1)
[2022-11-27 13:33] LABS: BLOOD UREA NITROGEN 58.2 mg/dL (7-18); MAGNESIUM 1.5 mg/dL (1.8-2.4)
[2022-11-27 13:36] LABS: CREATININE 1.7 mg/dL (0.55-1.3)
[2022-11-27 13:37] LABS: BILIRUBIN,TOTAL 0.6 mg/dL (0.2-1); TOT PROT 6.5 g/dl (6.4-8.2)
[2022-11-27 13:41] LABS: N-TERMINAL BNP 1282.6 pg/ml (5-125)
[2022-11-27 13:52] LABS: ANISOCYTOSIS 3+; MACROCYTOSIS 0; OVALOCYTE 2+
[2022-11-27] MEDS ORDERED: FUROSEMIDE 40 MG/4 ML INJECTABLE VIAL IVPUSH ONE (14:24)
[2022-11-27] MEDS ORDERED: FUROSEMIDE 40 MG/4 ML INJECTABLE VIAL ONE (14:27)
[2022-11-27] MEDS ORDERED: MAGNESIUM OXIDE 400 MG TABLET (FP) ONE (22:04)
[2022-11-27] MEDS: MAGNESIUM OXIDE 400 MG TABLET (FP) PO SCH (22:11)
[2022-11-28 09:09] LABS: BASO % 2.5 % (0-2.0); EOS % 1.8 % (0-4.5); HEMATOCRIT 23.9 % (35.4-49); HEMOGLOBIN 7.1 GM/dL (11.7-16.9); MCH 21.5 pg (25.7-33.7); MCHC 29.7 g/dl (32.0-35.9); MEAN CELL VOLUME 72.6 fl (80-96); MEAN PLT VOLUME 7.4 fl (7.5-11.1); MONO % 13.5 % (3.8-10.2); NEUT % 69.2 % (42.8-82.8); PLATELET COUNT 198 10^3/uL (134-434); RDW 21.4 % (11.9-15.9); WHITE BLOOD COUNT 3.9 K/mm3 (4.0-10.0)
[2022-11-28 09:52] LABS: BLOOD UREA NITROGEN 47.1 mg/dL (7-18); CALCIUM 8.7 mg/dL (8.5-10.1)
[2022-11-28 09:53] LABS: ALBUMIN 3.5 g/dl (3.4-5.0)
[2022-11-28 09:54] LABS: BILIRUBIN,TOTAL 0.8 mg/dL (0.2-1); TOT PROT 6.8 g/dl (6.4-8.2)
[2022-11-28 09:56] LABS: CREATININE 1.4 mg/dL (0.55-1.3)
[2022-11-28] MEDS ORDERED: metoPROLOL SUCCINATE 25 MG TAB.SR.24H (FP) PO ONE (10:09)
[2022-11-28] MEDS ORDERED: ATORVASTATIN CA 40 MG TABLET (FP) ONE (10:09)
[2022-11-28] MEDS ORDERED: MAGNESIUM OXIDE 400 MG TABLET (FP) ONE (10:09)
[2022-11-28] MEDS ORDERED: FUROSEMIDE 40 MG/4 ML INJECTABLE VIAL ONE (10:09)
[2022-11-28] MEDS: metoPROLOL SUCCINATE 25 MG TAB.SR.24H (FP) PO SCH (10:20)
[2022-11-28] MEDS: FUROSEMIDE 40 MG/4 ML INJECTABLE VIAL IVPUSH SCH (10:20)
[2022-11-28] MEDS: MAGNESIUM OXIDE 400 MG TABLET (FP) PO SCH ×2 (10:20→21:52)
[2022-11-28] MEDS: ATORVASTATIN CA 40 MG TABLET (FP) PO SCH (10:20)
[2022-11-29 07:28] LABS: BASO % 1.7 % (0-2.0); EOS % 2.3 % (0-4.5); HEMATOCRIT 24.6 % (35.4-49); HEMOGLOBIN 7.2 GM/dL (11.7-16.9); LYMPH % 8.9 % (8-40); MCH 21.7 pg (25.7-33.7); MCHC 29.4 g/dl (32.0-35.9); MEAN CELL VOLUME 73.9 fl (80-96); MEAN PLT VOLUME 8.3 fl (7.5-11.1); MONO % 12.8 % (3.8-10.2); NEUT % 74.3 % (42.8-82.8); PLATELET COUNT 170 10^3/uL (134-434); RBC 3.33 M/mm3 (4.00-5.60); RDW 21.7 % (11.9-15.9); WHITE BLOOD COUNT 3.7 K/mm3 (4.0-10.0)
[2022-11-29 07:57] LABS: ALBUMIN 3.3 g/dl (3.4-5.0); BLOOD UREA NITROGEN 39.3 mg/dL (7-18); CALCIUM 8.6 mg/dL (8.5-10.1)
[2022-11-29 08:00] LABS: CREATININE 1.3 mg/dL (0.55-1.3)
[2022-11-29 08:02] LABS: BILIRUBIN,TOTAL 0.8 mg/dL (0.2-1); TOT PROT 6.3 g/dl (6.4-8.2)
[2022-11-29] MEDS ORDERED: ATORVASTATIN CA 20 MG TABLET (FP) ONE (09:09)
[2022-11-29] MEDS: metoPROLOL SUCCINATE 25 MG TAB.SR.24H (FP) PO SCH (09:27)
[2022-11-29] MEDS: FUROSEMIDE 40 MG/4 ML INJECTABLE VIAL IVPUSH SCH (09:28)
[2022-11-29] MEDS: MAGNESIUM OXIDE 400 MG TABLET (FP) PO SCH ×2 (09:28→22:39)
[2022-11-29] MEDS: ATORVASTATIN CA 40 MG TABLET (FP) PO SCH (09:28)
[2022-11-29] MEDS ORDERED: IRON SUCROSE INJECTION 200 MG in SODIUM CHLORIDE 90 ML IVPB ONE (12:15)
[2022-11-29] MEDS: ACETAMINOPHEN/CAFFEINE/BUTALBITAL 1 TAB PO PRN (13:04)
[2022-11-29 21:33] VITALS: RESP 20
[2022-11-29] MEDS ORDERED: ACETAMINOPHEN/CAFFEINE/BUTALBITAL 1 TAB PO ONE (21:50)
[2022-11-30] MEDS: metoPROLOL SUCCINATE 25 MG TAB.SR.24H (FP) PO SCH (10:03)
[2022-11-30] MEDS: ACETAMINOPHEN/CAFFEINE/BUTALBITAL 1 TAB PO PRN (10:03)
[2022-11-30] MEDS: ATORVASTATIN CA 40 MG TABLET (FP) PO SCH (10:03)
[2022-11-30] MEDS: MAGNESIUM OXIDE 400 MG TABLET (FP) PO SCH (10:04)
[2022-11-30] MEDS: FUROSEMIDE 40 MG/4 ML INJECTABLE VIAL IVPUSH SCH (10:07)
[2022-11-30 13:01] LABS: HEMATOCRIT 25.8 % (35.4-49); HEMOGLOBIN 7.5 GM/dL (11.7-16.9); MCH 21.7 pg (25.7-33.7); MCHC 29.2 g/dl (32.0-35.9); MEAN CELL VOLUME 74.5 fl (80-96); MEAN PLT VOLUME 8.1 fl (7.5-11.1); PLATELET COUNT 185 10^3/uL (134-434); RBC 3.46 M/mm3 (4.00-5.60); RDW 22.8 % (11.9-15.9); WHITE BLOOD COUNT 4.9 K/mm3 (4.0-10.0)
[2022-11-30 15:18] VITALS: BP 145/72; PULSE 105; TEMP 98.9
== END 2022-11-30 16:22 | disposition home or self-care (01) | DRG 291 ==
LOC: JER 11:39 → JERBED 14:17 → J4W 11-28 16:17
PROVIDERS: ADMIT Internal Medicine; ATTEND Internal Medicine
DX: I13.0 Hypertensive heart and chronic kidney disease with heart failure and stage 1 through stage 4 chronic kidney disease, or unspecified chronic kidney disease (principal); I50.33 Acute on chronic diastolic (congestive) heart failure; I48.19 Other persistent atrial fibrillation; Z68.41 Body mass index [BMI] 40.0-44.9, adult; Z79.01 Long term (current) use of anticoagulants; E66.01 Morbid (severe) obesity due to excess calories; I25.10 Atherosclerotic heart disease of native coronary artery without angina pectoris; M21.372 Foot drop, left foot; N18.9 Chronic kidney disease, unspecified; E78.00 Pure hypercholesterolemia, unspecified; D64.9 Anemia, unspecified
CPT/HCPCS: 0241U-QW; 36415; 36430; 71045-TC-FY; 80053; 80061; 83036; 83735; 83880; 84443; 84484; 85025; 85027; 85610; 85730; 86850; 86900; 86901; 86922; 93005; 93010; 93306-TC; 93970-TC; 99285-25; J1756; P9058

== ENCOUNTER 2022-12-02 10:03 | Observation (INO) | payer OTHER ==
[2022-12-02 11:47] LABS: BASO % 1.1 % (0-2.0); EOS % 0.2 % (0-4.5); HEMATOCRIT 25.5 % (35.4-49); HEMOGLOBIN 7.4 GM/dL (11.7-16.9); LYMPH % 5.8 % (8-40); MCH 22.1 pg (25.7-33.7); MCHC 29.1 g/dl (32.0-35.9); MEAN CELL VOLUME 75.9 fl (80-96); MEAN PLT VOLUME 8.1 fl (7.5-11.1); MONO % 10.8 % (3.8-10.2); NEUT % 82.1 % (42.8-82.8); PLATELET COUNT 172 10^3/uL (134-434); RBC 3.37 M/mm3 (4.00-5.60); RDW 23.4 % (11.9-15.9); WHITE BLOOD COUNT 4.8 K/mm3 (4.0-10.0)
[2022-12-02 11:53] LABS: INR 1.37 (0.83-1.09); PROTHROMBIN TIME (PATIENT) 15.8 SEC (9.7-13.0)
[2022-12-02 12:07] LABS: ALBUMIN 3.3 g/dl (3.4-5.0); CALCIUM 8.7 mg/dL (8.5-10.1)
[2022-12-02 12:08] LABS: BLOOD UREA NITROGEN 35.6 mg/dL (7-18)
[2022-12-02 12:10] LABS: CREATININE 1.6 mg/dL (0.55-1.3)
[2022-12-02 12:12] LABS: BILIRUBIN,TOTAL 0.6 mg/dL (0.2-1); TOT PROT 6.5 g/dl (6.4-8.2)
[2022-12-02 12:30] LABS: ANISOCYTOSIS 2+; MACROCYTOSIS 0
[2022-12-02] MEDS ORDERED: FUROSEMIDE 40 MG/4 ML INJECTABLE VIAL IVPUSH ONE (15:38)
[2022-12-02] MEDS ORDERED: FUROSEMIDE 40 MG/4 ML INJECTABLE VIAL ONE (16:00)
[2022-12-02] MEDS: ACETAMINOPHEN 325 MG TABLET (FP) PO PRN (22:26)
[2022-12-02] MEDS: APIXABAN 5 MG TABLET PO SCH (22:28)
[2022-12-02] MEDS: ATORVASTATIN CA 40 MG TABLET (FP) PO SCH (22:28)
[2022-12-02 23:08] VITALS: BMI 36.9
[2022-12-03] MEDS: ACETAMINOPHEN 325 MG TABLET (FP) PO PRN ×2 (08:52→21:31)
[2022-12-03] MEDS: APIXABAN 5 MG TABLET PO SCH ×2 (09:01→21:31)
[2022-12-03 09:34] LABS: BASO % 1.2 % (0-2.0); EOS % 0.9 % (0-4.5); HEMATOCRIT 26.8 % (35.4-49); HEMOGLOBIN 7.9 GM/dL (11.7-16.9); LYMPH % 6.4 % (8-40); MCH 22.7 pg (25.7-33.7); MCHC 29.6 g/dl (32.0-35.9); MEAN CELL VOLUME 76.8 fl (80-96); MEAN PLT VOLUME 8.4 fl (7.5-11.1); MONO % 9.8 % (3.8-10.2); NEUT % 81.7 % (42.8-82.8); PLATELET COUNT 172 10^3/uL (134-434); WHITE BLOOD COUNT 4.5 K/mm3 (4.0-10.0)
[2022-12-03 10:06] LABS: CALCIUM 8.9 mg/dL (8.5-10.1)
[2022-12-03 10:08] LABS: ALBUMIN 3.2 g/dl (3.4-5.0); BLOOD UREA NITROGEN 30.2 mg/dL (7-18)
[2022-12-03 10:11] LABS: CREATININE 1.3 mg/dL (0.55-1.3)
[2022-12-03 10:12] LABS: TOT PROT 6.6 g/dl (6.4-8.2)
[2022-12-03 10:17] LABS: BILIRUBIN,TOTAL 0.7 mg/dL (0.2-1)
[2022-12-03] MEDS: PANTOPRAZOLE 40 MG TABLET PO SCH (11:06)
[2022-12-03] MEDS: FUROSEMIDE 40 MG TABLET (FP) PO SCH (11:06)
[2022-12-03] MEDS ORDERED: CYCLOBENZAPRINE HCL 5 MG TABLET PO SCH (12:00)
[2022-12-03] MEDS ORDERED: CYCLOBENZAPRINE HCL 5 MG TABLET PO PRN (13:09)
[2022-12-03] MEDS: ATORVASTATIN CA 40 MG TABLET (FP) PO SCH (21:31)
[2022-12-04] MEDS: PANTOPRAZOLE 40 MG TABLET PO SCH ×2 (10:12→10:15)
[2022-12-04] MEDS: APIXABAN 5 MG TABLET PO SCH ×2 (10:13→21:59)
[2022-12-04] MEDS: FUROSEMIDE 40 MG TABLET (FP) PO SCH (10:13)
[2022-12-04] MEDS ORDERED: ACETAMINOPHEN WITH CODEINE 300MG/30MG TABLET PO PRN (11:22)
[2022-12-04] MEDS: ACETAMINOPHEN/CAFFEINE/BUTALBITAL 1 TAB PO PRN ×2 (11:38→18:16)
[2022-12-04] MEDS: POLYETHYLENE GLYCOL (HEALTHYLAX) 3350 17 GM PACKET PO SCH (21:59)
[2022-12-04] MEDS: SENNOSIDES 8.6MG TABLET (FP) PO SCH (21:59)
[2022-12-04] MEDS: ATORVASTATIN CA 40 MG TABLET (FP) PO SCH (21:59)
[2022-12-05] MEDS: ACETAMINOPHEN 325 MG TABLET (FP) PO PRN (00:09)
[2022-12-05 08:31] LABS: BASO % 1.2 % (0-2.0); HEMATOCRIT 29.1 % (35.4-49); HEMOGLOBIN 8.7 GM/dL (11.7-16.9); LYMPH % 8.9 % (8-40); MEAN CELL VOLUME 76.6 fl (80-96); MEAN PLT VOLUME 8.4 fl (7.5-11.1); MONO % 11.7 % (3.8-10.2); NEUT % 77.2 % (42.8-82.8); PLATELET COUNT 168 10^3/uL (134-434); RDW 24.1 % (11.9-15.9); WHITE BLOOD COUNT 4.2 K/mm3 (4.0-10.0)
[2022-12-05 09:02] LABS: ALBUMIN 3.1 g/dl (3.4-5.0); BLOOD UREA NITROGEN 27.1 mg/dL (7-18); CALCIUM 8.5 mg/dL (8.5-10.1)
[2022-12-05 09:05] LABS: CREATININE 1.2 mg/dL (0.55-1.3)
[2022-12-05 09:06] LABS: TOT PROT 6.4 g/dl (6.4-8.2)
[2022-12-05 09:07] LABS: BILIRUBIN,TOTAL 0.8 mg/dL (0.2-1)
[2022-12-05] MEDS: ACETAMINOPHEN/CAFFEINE/BUTALBITAL 1 TAB PO PRN ×2 (09:39→14:43)
[2022-12-05] MEDS: FUROSEMIDE 40 MG TABLET (FP) PO SCH (09:41)
[2022-12-05] MEDS: POLYETHYLENE GLYCOL (HEALTHYLAX) 3350 17 GM PACKET PO SCH ×2 (09:41→22:57)
[2022-12-05] MEDS: PANTOPRAZOLE 40 MG TABLET PO SCH (09:41)
[2022-12-05] MEDS: APIXABAN 5 MG TABLET PO SCH ×2 (09:41→22:54)
[2022-12-05] MEDS: POTASSIUM CHLORIDE TABS 20 MEQ TABLET.ER (FP) PO SCH (14:10)
[2022-12-05] MEDS: ATORVASTATIN CA 40 MG TABLET (FP) PO SCH (22:57)
[2022-12-05] MEDS: SENNOSIDES 8.6MG TABLET (FP) PO SCH (22:58)
[2022-12-06 02:29] VITALS: RESP 19
[2022-12-06 06:28] VITALS: PULSE 98; TEMP 98.6
[2022-12-06] MEDS: ACETAMINOPHEN/CAFFEINE/BUTALBITAL 1 TAB PO PRN (06:37)
[2022-12-06] MEDS: APIXABAN 5 MG TABLET PO SCH (10:13)
[2022-12-06] MEDS: FUROSEMIDE 40 MG TABLET (FP) PO SCH (10:13)
[2022-12-06] MEDS: PANTOPRAZOLE 40 MG TABLET PO SCH (10:13)
[2022-12-06] MEDS: POTASSIUM CHLORIDE TABS 20 MEQ TABLET.ER (FP) PO SCH (10:13)
[2022-12-06] MEDS: POLYETHYLENE GLYCOL (HEALTHYLAX) 3350 17 GM PACKET PO SCH (10:18)
[2022-12-06 11:20] VITALS: BP 150/86
== END 2022-12-06 11:56 ==
LOC: JER 10:03 → JERBED 13:15 → OBSVTOIN 15:39 → INTOOBSV 15:39 → J7W 21:55
PROVIDERS: ADMIT Internal Medicine; ATTEND Internal Medicine
PROC: 3E033GC Introduction of Other Therapeutic Substance into Peripheral Vein, Percutaneous Approach (ICD-10-PCS; principal; 2022-12-02)
DX: I25.10 Atherosclerotic heart disease of native coronary artery without angina pectoris (principal); I11.0 Hypertensive heart disease with heart failure; R53.81 Other malaise; I48.91 Unspecified atrial fibrillation; M21.372 Foot drop, left foot; I50.30 Unspecified diastolic (congestive) heart failure; D64.9 Anemia, unspecified; R26.2 Difficulty in walking, not elsewhere classified; E66.8 Other obesity; Z68.39 Body mass index [BMI] 39.0-39.9, adult; Z79.01 Long term (current) use of anticoagulants
CPT/HCPCS: 0241U-QW; 36415; 36430; 71045-TC-FY; 80053; 84443; 85025; 85610; 85730; 86850; 86900; 86901; 86922; 93005; 93010; 96374; 97116-GP; 97162-GP; 99285-25; G0378; P9058